=== PATIENT | female | born 1950 | race Two or more races ===

== ENCOUNTER 2017-12-13 16:26 | Inpatient (IN) | payer OTHER ==
[2017-12-13] MEDS ORDERED: AMLODIPINE BESYL5 MG PO (19:12)
[2017-12-13] MEDS ORDERED: CRESTOR10 MG PO (19:13)
[2017-12-13] MEDS ORDERED: OMEPRAZOLE20 MG PO (19:13)
[2017-12-13] MEDS ORDERED: CALCIUM 500 MG1 EACH PO (19:13)
[2017-12-13 19:51] LABS: AMYLASE 77 IU/L (1-118); CHLORIDE 106 MEQ/L (99-109); POTASSIUM 3.7 MEQ/L (3.7-5.4); SODIUM 141 MEQ/L (136-147)
[2017-12-13 19:52] LABS: BASOPHIL (%) 0.4 % (0-1); BASOPHIL COUNT 0.1 K/uL (0-0.1); EOSINOPHIL (%) 1.9 % (0-5); EOSINOPHIL COUNT 0.2 K/uL (0-0.3); HEMATOCRIT 36.3 % (36.0-46.0); HEMOGLOBIN 12.2 G/DL (11.9-15.5); IMMATURE GRANULOCYTE (%) 1.1 % (0.0-0.7); LYMPHOCYTE (%) 45.7 % (15-42); LYMPHOCYTE COUNT 5.7 K/uL (1.0-2.8); MCH 30.1 PG (29.0-34.0); MCHC 33.6 G/DL (30.0-36.0); MCV 89.6 FL (83-99); MONOCYTE (%) 5.2 % (3-12); MONOCYTE COUNT 0.6 K/uL (0-0.8); NEUTROPHIL (%) 45.7 % (45-76); NEUTROPHIL COUNT 5.7 K/uL (1.8-6.4); PLATELET COUNT 203 K/uL (156-360); RBC DIS.WIDTH-CV 12.7 % (11.8-14.6); RBC DIS.WIDTH-SD 41.7 % (39-53); RED BLOOD COUNT 4.05 M/uL (3.80-5.20); WHITE BLOOD COUNT 12.4 K/uL (4.1-10.2)
[2017-12-13 19:57] LABS: CREATININE 0.6 MG/DL (0.6-1.3); GFR ESTIMATE (CALCULATED) > 59 mL/min/; GLUCOSE 135 mg/dL (70-99); LIPASE 53 U/L (1.0-51.0); SERUM ETHYL ALCOHOL < 10 mg/dL; UREA NITROGEN (BUN) 20 mg/dL (9-23)
[2017-12-13 21:05] LABS: APPEARANCE CLEAR ((CLEAR)); BILIRUBIN NEGATIVE; BLOOD LARGE; COLOR YELLOW ((YELLOW)); GLUCOSE (STRIP) NEGATIVE; KETONES 20; LEUKOCYTES NEGATIVE; NITRITE NEGATIVE; PROTEIN (STRIP) 30; SPECIFIC GRAVITY 1.058 (1.000-1.030); UROBILINOGEN 0.2 MG/DL (0.2-1.0)
[2017-12-13 21:17] LABS: BACTERIA NONE SEEN /HPF; EPITHELIAL CELLS NONE SEEN /HPF; MUCUS NONE SEEN /LPF; RED BLOOD CELLS 40-50 /HPF (0-5); UCUL ADDED? NO; WHITE BLOOD CELLS 0-5 /HPF (0-5)
[2017-12-13 21:36] LABS: AMPHETAMINE NEGATIVE (500 ng/mL); BARBITURATES NEGATIVE (200 ng/mL); BENZODIAZEPINES NEGATIVE (150 ng/mL); BUPRENORPHINE NEGATIVE (10 ng/mL); COCAINE NEGATIVE (150 ng/mL); METHADONE NEGATIVE (200 ng/mL); METHAMPHETAMINE NEGATIVE (500 ng/mL); OPIATES (MORPHINE) PRESUMPTIVE POSITIVE (100 ng/mL); OXYCODONE NEGATIVE (100 ng/mL); PHENCYCLIDINE NEGATIVE (25 ng/mL); PROPOXYPHENE NEGATIVE (300 ng/mL); THC CANNABINOIDS NEGATIVE (50 ng/mL); TRICYCLIC ANTIDEPRESSANTS NEGATIVE (300 ng/mL)
[2017-12-13 21:50] VITALS: BP 117/71
[2017-12-13 22:00] VITALS: BP 117/71
[2017-12-14 01:38] VITALS: BP 104/69
[2017-12-14 06:11] LABS: HEMOGLOBIN 10.3 G/DL (11.9-15.5); MCH 30.3 PG (29.0-34.0); MCHC 33.2 G/DL (30.0-36.0); MCV 91.2 FL (83-99); RBC DIS.WIDTH-CV 12.8 % (11.8-14.6); RBC DIS.WIDTH-SD 42.3 % (39-53); WHITE BLOOD COUNT 8.5 K/uL (4.1-10.2)
[2017-12-14 06:15] VITALS: BP 186/72
[2017-12-14 06:19] LABS: ALBUMIN 3.4 G/DL (3.2-4.8); ALKALINE PHOSPHATASE 54 IU/L (3-129); ALT (GPT) 35 IU/L (3-49); AST (GOT) 69 IU/L (2-34); CHLORIDE 108 MEQ/L (99-109); CREATININE 0.6 MG/DL (0.6-1.3); GFR ESTIMATE (CALCULATED) > 59 mL/min/; GLUCOSE 137 mg/dL (70-99); PHOSPHORUS 4.1 mg/dL (2.5-4.9); SODIUM 141 MEQ/L (136-147); TOTAL BILIRUBIN 0.5 MG/DL (0.0-1.0); TOTAL PROTEIN 5.7 G/DL (6.4-8.3); UREA NITROGEN (BUN) 23 mg/dL (9-23)
[2017-12-14 06:56] LABS: PLAT.SUFFICIENCY ADEQUATE
[2017-12-14 07:11] LABS: PLATELET COUNT 136 K/uL (156-360)
[2017-12-14 08:42] VITALS: BP 100/59
[2017-12-14 11:56] VITALS: BP 106/60
[2017-12-14 14:18] LABS: HEMOGLOBIN 9.7 G/DL (11.9-15.5); MCV 90.3 FL (83-99)
[2017-12-14 16:39] VITALS: BP 114/58
[2017-12-14 21:00] VITALS: BP 123/69
[2017-12-15] VITALS: BP 115/67
[2017-12-15 04:00] VITALS: BP 124/71
[2017-12-15 08:48] LABS: HEMATOCRIT 29.3 % (36.0-46.0); HEMOGLOBIN 9.5 G/DL (11.9-15.5); MCHC 32.4 G/DL (30.0-36.0); MCV 92.4 FL (83-99); PLATELET COUNT 108 K/uL (156-360); RBC DIS.WIDTH-CV 12.7 % (11.8-14.6); RBC DIS.WIDTH-SD 43.1 % (39-53); RED BLOOD COUNT 3.17 M/uL (3.80-5.20); WHITE BLOOD COUNT 9.1 K/uL (4.1-10.2)
[2017-12-15 09:12] LABS: CHLORIDE 109 MEQ/L (99-109); CREATININE 0.5 MG/DL (0.6-1.3); GFR ESTIMATE (CALCULATED) > 59 mL/min/; POTASSIUM 3.5 MEQ/L (3.7-5.4); SODIUM 140 MEQ/L (136-147); UREA NITROGEN (BUN) 13 mg/dL (9-23)
[2017-12-15 09:13] LABS: GLUCOSE 86 mg/dL (70-99)
[2017-12-15 12:41] VITALS: BP 122/78
[2017-12-15 15:11] VITALS: BP 110/65
[2017-12-15 19:14] VITALS: BP 121/67
[2017-12-15 23:23] VITALS: BP 120/66
[2017-12-16 03:36] VITALS: BP 127/70
[2017-12-16 08:34] VITALS: BP 117/67
[2017-12-16 11:24] VITALS: BP 112/65
[2017-12-16 12:25] LABS: HEMATOCRIT 28.9 % (36.0-46.0); HEMOGLOBIN 9.6 G/DL (11.9-15.5); MCH 30.2 PG (29.0-34.0); MCHC 33.2 G/DL (30.0-36.0); MCV 90.9 FL (83-99); PLATELET COUNT 125 K/uL (156-360); RBC DIS.WIDTH-CV 12.6 % (11.8-14.6); RBC DIS.WIDTH-SD 41.9 % (39-53); RED BLOOD COUNT 3.18 M/uL (3.80-5.20); WHITE BLOOD COUNT 7.7 K/uL (4.1-10.2)
[2017-12-16 13:04] LABS: CHLORIDE 108 MEQ/L (99-109); CREATININE 0.5 MG/DL (0.6-1.3); GFR ESTIMATE (CALCULATED) > 59 mL/min/; POTASSIUM 3.1 MEQ/L (3.7-5.4); SODIUM 144 MEQ/L (136-147); UREA NITROGEN (BUN) 9 mg/dL (9-23)
[2017-12-16 13:16] LABS: GLUCOSE 137 mg/dL (70-99)
[2017-12-16 15:51] VITALS: BP 137/69
[2017-12-16 19:00] VITALS: BP 132/71; BP 154/78
[2017-12-16 23:42] VITALS: BP 128/72
[2017-12-17 03:50] VITALS: BP 112/67
[2017-12-17 08:20] VITALS: BP 120/73
[2017-12-17] MEDS ORDERED: HYDROCODON-ACE1 EAC7 PO (09:26)
[2017-12-17] MEDS ORDERED: DOCUSATE SODIU100 MG PO (09:26)
[2017-12-17 10:46] LABS: CHLORIDE 111 MEQ/L (99-109); CREATININE 0.5 MG/DL (0.6-1.3); GFR ESTIMATE (CALCULATED) > 59 mL/min/; GLUCOSE 146 mg/dL (70-99); POTASSIUM 3.1 MEQ/L (3.7-5.4); SODIUM 145 MEQ/L (136-147); UREA NITROGEN (BUN) 9 mg/dL (9-23)
[2017-12-17 11:17] VITALS: BP 118/71
[2017-12-17 15:10] VITALS: BP 160/58
== END 2017-12-17 17:30 | DRG 964 ==
LOC: TRA 16:26 → 4EAST 20:37 → EDOF 20:37 → 4EAST 21:27 → ENPENDDIS 12-17 → ENRESERV 12-17 09:34 → CANRESERV 12-17 09:34 → 4EAST 12-17 11:14
PROVIDERS: Family Medicine; Physician Assistant Surgical; Surgery
DX: S06.5X9A Traumatic subdural hemorrhage with loss of consciousness of unspecified duration, initial encounter (principal); S32.019A Unspecified fracture of first lumbar vertebra, initial encounter for closed fracture; S32.029A Unspecified fracture of second lumbar vertebra, initial encounter for closed fracture; S22.42XA Multiple fractures of ribs, left side, initial encounter for closed fracture; S32.591A Other specified fracture of right pubis, initial encounter for closed fracture; S12.501A Unspecified nondisplaced fracture of sixth cervical vertebra, initial encounter for closed fracture; K59.00 Constipation, unspecified; I10 Essential (primary) hypertension; I60.9 Nontraumatic subarachnoid hemorrhage, unspecified; K21.9 Gastro-esophageal reflux disease without esophagitis; M81.0 Age-related osteoporosis without current pathological fracture; Y92.410 Unspecified street and highway as the place of occurrence of the external cause; V43.62XA Car passenger injured in collision with other type car in traffic accident, initial encounter; Z79.899 Other long term (current) drug therapy
CPT/HCPCS: 70450; 71260; 72040; 72125; 72129; 72132; 73090; 73590; 74177; 80048; 80053; 81003; 82150; 83690; 83735; 84100; 84999; 85014; 85018; 85025; 85027; 86850; 86900; 86901; 94799; 99281; 99285; C9113; G0480; J1170; J2270; J2405; J7030; J7040; J7050